=== PATIENT | female | born 1980 | race Caucasian/White ===

== ENCOUNTER 2017-04-30 22:46 | Emergency (ER) | payer MEDICAID ==
[~2017-04-30] VITALS: Ht 167.6 cm; Wt 77.3 kg
[2017-04-30] MEDS ORDERED: FAMOTIDINE 10 MG/ML 2 ML VIAL IVP ONE (23:45)
[2017-04-30] MEDS ORDERED: DiphenhydrAMINE HCL 50 MG/ML VIAL IVP ONE (23:45)
[2017-04-30] MEDS ORDERED: DEXAMETHASONE SOD PHOS 4 MG/ML 5 ML VIAL IVP ONE (23:45)
[2017-04-30] MEDS ORDERED: PROCHLORPERAZINE EDISYLATE 5 MG/ML 2 ML VIAL IVP ONE (23:45)
[2017-05-01] MEDS ORDERED: EPINEPHrine 1:1,000 [1 MG/ML] AMP SQ ONE (01:30)
[2017-05-01 02:10] VITALS: BP 128/81
== END 2017-05-01 02:19 | disposition home or self-care (01) ==
LOC: EMS 22:48
DX: T78.40XA Allergy, unspecified, initial encounter (principal); F17.210 Nicotine dependence, cigarettes, uncomplicated; Y92.511 Restaurant or cafe as the place of occurrence of the external cause
CPT/HCPCS: 96372; 96374; 96375; 99284; J0171; J0780; J1100; J1200; J3490

== ENCOUNTER 2017-09-10 15:39 | Emergency (ER) | payer MEDICAID ==
[~2017-09-10] VITALS: Ht 167.6 cm; Wt 80.0 kg
[2017-09-10] MEDS ORDERED: DIPH25 PO (15:49)
[2017-09-10] MEDS ORDERED: ACETAMINOPHEN 500 MG TABLET PO ONE (16:00)
[2017-09-10] MEDS ORDERED: DEXAMETHASONE SOD PHOS 4 MG/ML 5 ML VIAL IM ONE (17:45)
[2017-09-10 18:15] LABS: INFLUENZA TYPE A NEGATIVE FOR TYPE A (NEGATIVE); INFLUENZA TYPE B NEGATIVE FOR TYPE B (NEGATIVE)
[2017-09-10] MEDS ORDERED: PENICILLIN G BENZATHINE LA 1,200,000 UNITS/2 ML SYRINGE IM ONE (18:30)
[2017-09-10 19:28] VITALS: BP 121/78
== END 2017-09-10 19:31 | disposition home or self-care (01) ==
LOC: EMS 15:41
DX: J02.9 Acute pharyngitis, unspecified (principal); J02.0 Streptococcal pharyngitis; F15.10 Other stimulant abuse, uncomplicated; F17.210 Nicotine dependence, cigarettes, uncomplicated; Z88.6 Allergy status to analgesic agent
CPT/HCPCS: 87430; 87804; 96372; 99284; J0561; J1100

== ENCOUNTER 2017-12-30 16:36 | Emergency (ER) | payer MEDICAID ==
[~2017-12-30] VITALS: Ht 167.6 cm; Wt 72.7 kg
[~2017-12-30 16:36] MED LIST: DIPH25 PO
[2017-12-30 17:44] VITALS: BP 122/67
== END 2017-12-30 18:41 | disposition home or self-care (01) ==
LOC: EMS 16:37
DX: S20.162A Insect bite (nonvenomous) of breast, left breast, initial encounter (principal); N61.0 Mastitis without abscess; F10.20 Alcohol dependence, uncomplicated; F17.210 Nicotine dependence, cigarettes, uncomplicated; Z88.6 Allergy status to analgesic agent; Y90.9 Presence of alcohol in blood, level not specified; W57.XXXA Bitten or stung by nonvenomous insect and other nonvenomous arthropods, initial encounter; Y93.89 Activity, other specified; Y92.89 Other specified places as the place of occurrence of the external cause; Y99.8 Other external cause status
CPT/HCPCS: 99283

== ENCOUNTER 2020-02-14 22:42 | Emergency (ER) | payer SELFPAY ==
[~2020-02-14] VITALS: Ht 167.6 cm; Wt 79.5 kg
[2020-02-15 00:29] VITALS: BP 129/77
== END 2020-02-15 01:08 | disposition home or self-care (01) ==
LOC: EMS 22:44
DX: S83.91XA Sprain of unspecified site of right knee, initial encounter (principal); F17.210 Nicotine dependence, cigarettes, uncomplicated; Z88.6 Allergy status to analgesic agent; W50.1XXA Accidental kick by another person, initial encounter; Y93.89 Activity, other specified; Y92.89 Other specified places as the place of occurrence of the external cause; Y99.8 Other external cause status

== ENCOUNTER 2020-09-04 19:29 | Emergency (ER) | payer MEDICAID ==
[~2020-09-04] VITALS: Ht 162.6 cm; Wt 79.5 kg
[2020-09-04] MEDS ORDERED: SODIUM CHLORIDE 0.9% 1,000 ML IV ONE (19:45)
[2020-09-04 20:19] LABS: BASOPHILS % (AUTO) 0.3 % (0.0-2.0); EOSINOPHILS % (AUTO) 1.1 % (1.0-6.0); HEMATOCRIT 40.7 % (36-46); HEMOGLOBIN 13.3 g/dL (12.0-16.0); LYMPHOCYTES # (AUTO) 2.8 K/uL (1.0-4.8); LYMPHOCYTES % (AUTO) 37.8 % (22.0-44.0); MEAN CORPUSCULAR HEMOGLOBIN 28.9 pg (26.0-34.0); MEAN CORPUSCULAR HGB CONC 32.6 G/dL (31.0-37.0); MEAN CORPUSCULAR VOLUME 89 fL (80-100); MONOCYTES # (AUTO) 0.3 K/uL (0.1-1.0); MONOCYTES % (AUTO) 4.7 % (2.0-9.0); NEUTROPHILS # (AUTO) 4.1 K/uL (1.8-7.7); NEUTROPHILS % (AUTO) 56.1 % (40.0-70.0); PLATELET COUNT (AUTO) 325 K/uL (150-450)
[2020-09-04 20:32] LABS: ANION GAP 12 mmol/L (8-16); CALCIUM, TOTAL 8.6 mg/dL (8.8-10.5); CARBON DIOXIDE 26 mmol/L (22-29); CHLORIDE 106 mmol/L (98-107); CREATININE 0.67 mg/dL (0.60-1.30); GLOMERULAR FILTR. RATE CALC > 60 mL/min (>60); GLUCOSE,RANDOM 108 mg/dL (70-110); POTASSIUM 3.7 mmol/L (3.5-5.1); SODIUM SERUM 144 mmol/L (136-145); UREA NITROGEN, BLOOD 9 mg/dL (7-18)
[2020-09-04 20:48] LABS: ALANINE AMINOTRANSFERASE 53 U/L (12-78); ALBUMIN 3.6 g/dL (3.4-5.0); ALKALINE PHOSPHATASE 97 U/L (46-116); ASPARTATE AMINOTRANSFERASE 43 U/L (15-37); BILIRUBIN,TOTAL 0.2 mg/dL (0.1-1.0); HCG,QUANTITATIVE < 1 mIU/mL (0-6); TOTAL PROTEIN, SERUM 7.6 g/dL (6.4-8.2)
[2020-09-04 20:49] LABS: ACETAMINOPHEN < 2 mcg/mL (10-30)
[2020-09-04 21:06] LABS: SALICYLATE 2.1 mg/dL (2.8-20.0)
[2020-09-04 21:20] VITALS: BP 127/78
[2020-09-04 21:52] LABS: AMPHET/METH SCREEN,URINE POSITIVE (NEGATIVE); BARBITURATE SCREEN, URINE NEGATIVE (NEGATIVE); BENZODIAZEPINES SCREEN,URINE NEGATIVE (NEGATIVE); CANNABINOID SCREEN,URINE NEGATIVE (NEGATIVE); COCAINE SCREEN,URINE NEGATIVE (NEGATIVE); METHADONE SCREEN, URINE NEGATIVE (NEGATIVE); OPIATE SCREEN,URINE NEGATIVE (NEGATIVE); PHENCYCLIDINE SCREEN,URINE NEGATIVE (NEGATIVE)
== END 2020-09-04 21:27 | disposition home or self-care (01) ==
LOC: EMS 19:30
DX: F10.129 Alcohol abuse with intoxication, unspecified (principal); F12.90 Cannabis use, unspecified, uncomplicated; R55 Syncope and collapse; F17.210 Nicotine dependence, cigarettes, uncomplicated; Z88.6 Allergy status to analgesic agent; Y90.8 Blood alcohol level of 240 mg/100 ml or more
CPT/HCPCS: 36415; 80053; 80307; 84702; 85025; 93005; 96360; 99284; G0480; G0481

== ENCOUNTER 2022-11-28 23:26 | Emergency (ER) | payer MEDICAID ==
[~2022-11-28] VITALS: Ht 165.1 cm; Wt 86.4 kg
[2022-11-28 23:43] VITALS: TEMP 98.6
[2022-11-29] MEDS ORDERED: SODIUM CHLORIDE 0.9% 1,000 ML IV ONE
[2022-11-29 00:16] LABS: BASOPHILS % (AUTO) 0.5 % (0.0-2.0); HEMATOCRIT 37.6 % (36-46); HEMOGLOBIN 12.3 g/dL (12.0-16.0); LYMPHOCYTES # (AUTO) 2.8 K/uL (1.0-4.8); LYMPHOCYTES % (AUTO) 32.5 % (22.0-44.0); MEAN CORPUSCULAR HEMOGLOBIN 27.7 pg (26.0-34.0); MEAN CORPUSCULAR HGB CONC 32.6 G/dL (31.0-37.0); MEAN CORPUSCULAR VOLUME 85 fL (80-100); MONOCYTES # (AUTO) 0.4 K/uL (0.1-1.0); NEUTROPHILS # (AUTO) 5.1 K/uL (1.8-7.7); PLATELET COUNT (AUTO) 296 K/uL (150-450); RED BLOOD CELL COUNT(AUTO) 4.43 MIL/uL (4.00-5.20); RED CELL DISTRIBUTION WIDTH 15.5 % (11.5-14.5)
[2022-11-29 00:39] LABS: ANION GAP 7 mmol/L (8-16); CALCIUM, TOTAL 8.6 mg/dL (8.8-10.5); CARBON DIOXIDE 26 mmol/L (22-29); CHLORIDE 105 mmol/L (98-107); CREATININE 0.52 mg/dL (0.60-1.30); GLOMERULAR FILTR. RATE CALC > 60 mL/min (>60); GLUCOSE,RANDOM 117 mg/dL (70-110); POTASSIUM 3.2 mmol/L (3.5-5.1); SODIUM SERUM 138 mmol/L (136-145)
[2022-11-29 00:44] LABS: ALANINE AMINOTRANSFERASE 26 U/L (12-78); ALBUMIN 3.4 g/dL (3.4-5.0); ALKALINE PHOSPHATASE 104 U/L (46-116); ASPARTATE AMINOTRANSFERASE 19 U/L (15-37); TOTAL PROTEIN, SERUM 7.4 g/dL (6.4-8.2)
[2022-11-29 00:47] LABS: ACETAMINOPHEN < 2 mcg/mL (10-30)
[2022-11-29 00:48] LABS: SALICYLATE 2.3 mg/dL (2.8-20.0)
[2022-11-29 01:05] LABS: BILIRUBIN,TOTAL 0.1 mg/dL (0.1-1.0)
[2022-11-29 02:10] LABS: APPEARANCE,URINE HAZY (CLEAR); BILIRUBIN,URINE NEGATIVE (NEGATIVE); GLUCOSE, URINE (UA) NEGATIVE (NEGATIVE); KETONES,URINE NEGATIVE (NEGATIVE); LEUKOCYTE ESTERASE ,URINE SMALL (NEGATIVE); NITRATE,URINE NEGATIVE (NEGATIVE); OCCULT BLOOD,URINE NEGATIVE (NEGATIVE); PH,URINE 5.5 (5.0-8.0); PROTEIN,URINE TRACE mg/dL (NEGATIVE); SPECIFIC GRAVITIY, URINE 1.027 (1.003-1.030); UROBILINOGEN,URINE <=1.0 mg/dL (<=1.0)
[2022-11-29 02:18] LABS: AMPHET/METH SCREEN,URINE POSITIVE (NEGATIVE); BARBITURATE SCREEN, URINE NEGATIVE (NEGATIVE); BENZODIAZEPINES SCREEN,URINE NEGATIVE (NEGATIVE); CANNABINOID SCREEN,URINE NEGATIVE (NEGATIVE); COCAINE SCREEN,URINE NEGATIVE (NEGATIVE); METHADONE SCREEN, URINE NEGATIVE (NEGATIVE); OPIATE SCREEN,URINE NEGATIVE (NEGATIVE); PHENCYCLIDINE SCREEN,URINE NEGATIVE (NEGATIVE)
[2022-11-29 02:20] LABS: BACTERIA,URINE Rare /HPF (None Seen); RBC,URINE None Seen /HPF (0-2); SQUAMOUS EPITHELIAL CELL,UR Many /LPF (None Seen)
[2022-11-29 03:26] VITALS: BP 115/70; PULSE 82; RESP 16
== END 2022-11-29 03:28 | disposition home or self-care (01) ==
LOC: EMS 23:28
DX: T50.901A Poisoning by unspecified drugs, medicaments and biological substances, accidental (unintentional), initial encounter (principal); F10.129 Alcohol abuse with intoxication, unspecified; F15.10 Other stimulant abuse, uncomplicated; F17.210 Nicotine dependence, cigarettes, uncomplicated; F12.90 Cannabis use, unspecified, uncomplicated; Z88.6 Allergy status to analgesic agent; Y90.9 Presence of alcohol in blood, level not specified; Y92.89 Other specified places as the place of occurrence of the external cause
CPT/HCPCS: 99291; 80053; 81001; 85025; 36415; 80307; 96360; 93005; J7030; G0480; G0481

== ENCOUNTER 2023-03-07 17:52 | Emergency (ER) | payer MEDICAID, SELFPAY ==
[~2023-03-07] VITALS: Ht 165.1 cm; Wt 86.4 kg
[2023-03-07 17:59] VITALS: TEMP 98.6
[2023-03-07] MEDS ORDERED: PredniSONE 20 MG TABLET PO ONE (18:30)
[2023-03-07] MEDS ORDERED: DiphenhydrAMINE HCL 50 MG/ML VIAL IM ONE (18:30)
[2023-03-07] MEDS ORDERED: DIPH25CA85 PO (19:34)
[2023-03-07] MEDS ORDERED: PRED-554 PO (19:34)
[2023-03-07 19:51] VITALS: BP 140/78; PULSE 92; RESP 18
== END 2023-03-07 20:05 | disposition home or self-care (01) ==
LOC: EMS 17:53
DX: T63.441A Toxic effect of venom of bees, accidental (unintentional), initial encounter (principal); F17.210 Nicotine dependence, cigarettes, uncomplicated; F12.90 Cannabis use, unspecified, uncomplicated; F10.90 Alcohol use, unspecified, uncomplicated; Z88.6 Allergy status to analgesic agent; Y92.89 Other specified places as the place of occurrence of the external cause; Y90.9 Presence of alcohol in blood, level not specified
CPT/HCPCS: 99283; 96372; J1200; J7512

== ENCOUNTER 2024-07-14 05:20 | Emergency (ER) | payer MEDICAID, OTHER ==
[~2024-07-14] VITALS: Ht 167.6 cm; Wt 77.3 kg
[~2024-07-14 05:20] MED LIST changes: -DIPH25 PO; +DIPH25CA85 PO; +PRED-554 PO
[2024-07-14 05:26] VITALS: BP 126/81; PULSE 97; RESP 14; TEMP 97.9; O2SAT 100
== END 2024-07-14 07:12 | disposition left against medical advice (07) ==
LOC: EMS 05:26
DX: M79.672 Pain in left foot (principal); Z53.21 Procedure and treatment not carried out due to patient leaving prior to being seen by health care provider